=== PATIENT | male | born 1970 | race Caucasian/White ===

== ENCOUNTER 2022-01-14 20:33 | Inpatient (IN) | payer OTHER, BC ==
[~2022-01-14 20:33] MED LIST: Iopamidol-370 76% 500 ML 1 ML ONE
[2022-01-14] MEDS ORDERED: Succinylcholine 200 MG/10 ml SYRINGE FS ONE (20:40)
[2022-01-14] MEDS ORDERED: Propofol 1,000 MG/100 ML VIAL IV ONE ×2 (20:43→21:06)
[2022-01-14] MEDS ORDERED: Fentanyl CADD 100 ML IV SCH (21:00)
[2022-01-14 21:08] LABS: Actual Bicarbonate (HCO3a) 18.5 mEq/L (22-28); Analyzer IN Cardio ER; Base Excess (BEa) -9.7 mEq/L (-2.0 to +3.0); CO2 Tension 49.4 mmHg (35.0-45.0); Calcium, Ionized (arterial) 0.96 mmol/L (1.12-1.30); Carboxyhemoglobin (COHb) 0.1 gm% (0.0-3.0); Hemoglobin (Hb) 13.1 g/dL (14.0-18.0); O2 Tension (PaO2), arterial 63.7 mmHg (80.0-100.0); Potassium - ABG Lab 5.62 mmol/L (3.70-5.30)
[2022-01-14 21:13] LABS: #Lymphocytes 0.7 thou/uL (1.20-3.40); #Monocytes 0.7 thou/uL (0.11-0.59); #Neutrophils 7.6 thou/uL (1.40-6.50); %Basophils 0.2 % (0.0-1.0); %Eosinophils 0.4 % (0.0-10.0); %Lymphocytes 7.7 % (21.0-51.0); %Neutrophils 83.7 % (42.0-75.0); Hemoglobin 13.3 g/dL (14.0-18.0); Mean Corpuscular HGB CONC 31.8 g/dL (32.0-36.0); Mean Corpuscular Hemoglobin 30.3 pg (27.0-31.0); Mean Corpuscular Volume 95.3 fl (78.0-98.0); Mean Platelet Volume 8.5 fL (7.4-10.4); Platelet Count 196 10x3/uL (130-400); RBC Distribution Width 13.8 % (11.5-14.5)
[2022-01-14 21:20] LABS: Puncture Site RBA; pH, Arterial 7.19 (7.35-7.45)
[2022-01-14 21:31] LABS: Acetaminophen Less than 10.0 mcg/mL (10.0-30.0); Alcohol Less than 10 mg/dL (Less than 10); CK (CPK) 2691 U/L (30-200); Salicylate Less than 8.0 mg/dL (15.0-30.0)
[2022-01-14 21:36] LABS: INR-International Normal Ratio 1.4; PTT 25.2 sec (22.9-36.1); Prothrombin Time 17.6 sec (12.0-14.7)
[2022-01-14 22:36] LABS: ALT (SGPT) 1141 U/L (8-55); AST (SGOT) 1266 U/L (5-34); Albumin 3.9 g/dL (3.5-5.0); Alkaline Phosphatase 69 U/L (40-110); Anion Gap 24 mmol/L (10-20); BUN (Urea Nitrogen) 56 mg/dL (8.4-25.7); Bilirubin, Total 0.9 mg/dL (0.2-1.2); Calc. Creatinine Clearance 0 mL/min (70-130); Calcium 7.5 mg/dL (7.8-10.44); Carbon Dioxide 14 mmol/L (22-29); Chloride 110 mmol/L (98-107); Estimated GFR 13; Globulin 3.7 g/dL (2.4-3.5); Glucose 141 mg/dL (70-105); Lipase 25 U/L (8-78); Protein, Total 7.6 g/dL (6.0-8.3); Sodium 141 mmol/L (136-145)
[2022-01-14 22:40] LABS: Bacteria/HPF None Seen HPF (None Seen); Bilirubin 1+ (Negative); Blood, Urine Trace (Negative); Clarity Turbid (Clear); Glucose, Urine (Dipstick) Normal (Negative); Ketone, Urine Negative (Negative); Leukocyte Negative Leu/uL (Negative); Nitrite Negative (Negative); Protein, Urine (Dipstick) 50 mg/dL (Neg-Trace); RBC/HPF 0-3 HPF (0-3); Specific Gravity, Urine 1.027 (1.002-1.036); Squamous Epithelial 0-3 HPF (0-3); WBC/HPF None Seen HPF (0-3)
[2022-01-14 22:49] LABS: Amphetamine Not Detected (NotDetected); Barbiturates Screen Not Detected (NotDetected); Benzodiazepine Screen Detected (NotDetected); Cocaine Metabolite Screen Not Detected (NotDetected); Methadone Not Detected (NotDetected); Methamphetamine Not Detected (NotDetected); Opiate Screen Detected (NotDetected); Oxycodone Screen Not Detected (NotDetected); Phencyclidine (PCP) Not Detected (NotDetected); THC/Cannabinoid Screen Not Detected (NotDetected); Tricyclic Screen Not Detected (NotDetected)
[2022-01-14 23:05] LABS: Potassium 6.8 mmol/L (3.5-5.1)
[2022-01-14] MEDS ORDERED: Insulin Regular 300 UNITS/3 ML VIAL ONE (23:15)
[2022-01-14] MEDS ORDERED: Calcium Chloride 1 GM/10 ML Abboject SYRINGE ONE (23:15)
[2022-01-14] MEDS ORDERED: Sodium Bicarb 50 MEQ/50 ML VIAL ONE (23:15)
[2022-01-14] MEDS ORDERED: Dextrose 50% Abboject 50 ML SYRINGE ONE (23:17)
[2022-01-14 23:23] LABS: CKMB 34.9 ng/mL (0-6.6)
[2022-01-14] MEDS ORDERED: Calcium Gluconate 9.2 MEQ in Sodium Chloride 0.9% 200 ML IVPB SCH (23:25)
[2022-01-14] MEDS ORDERED: Ondansetron ODT 4 MG TAB PO PRN (23:44)
[2022-01-14] MEDS ORDERED: Ondansetron PF 4 MG/2 ML Vial IVP PRN (23:44)
[2022-01-14] MEDS ORDERED: Norepinephrine 8 MG/0.9% NS 250 ML IVPB PRN (23:44)
[2022-01-14] MEDS ORDERED: Sodium Bicarbonate 150 MEQ in Dextrose 5% in Water 1,000 ML IV SCH (23:45)
[2022-01-14] MEDS ORDERED: Ventilator Sedation Protocol 1 EACH FS SCH (23:45)
[2022-01-14 23:57] LABS: Creatinine, Urine 226.84 mg/dL (63-166)
[2022-01-15] MEDS ORDERED: NOREPINEPHRINE 8 MG/250 ML-D5W 0 ML ONE (00:17)
[2022-01-15 00:29] LABS: Lactic Acid 2.3 mmol/L (0.5-2.2)
[2022-01-15] MEDS ORDERED: Midazolam HCl 2 mg/2 ml Vial SLOW IVP PRN (00:39)
[2022-01-15] MEDS ORDERED: Propofol BOLUS 1,000 MG/100 ML VIAL IV PRN (00:45)
[2022-01-15] MEDS ORDERED: DISCONTINUE PREVIOUS NARCOTIC PAIN MEDICATIONS AND BENZODIAZEPINES FS SCH (00:45)
[2022-01-15] MEDS ORDERED: Fentanyl BOLUS 250 ML IVPB PRN (00:45)
[2022-01-15] MEDS ORDERED: Propofol 1,000 MG/100 ML VIAL IV PRN (00:45)
[2022-01-15] MEDS ORDERED: Fentanyl CADD 100 ML IV SCH (00:45)
[2022-01-15] MEDS ORDERED: Morphine 4 MG/ML VIAL SLOW IVP PRN (00:45)
[2022-01-15] MEDS ORDERED: Piperacillin/Tazobactam 3.375 GM in Sodium Chloride 0.9% 100 ML IVPB SCH ×3 (01:00→14:00)
[2022-01-15 01:12] LABS: Troponin I 1.896 ng/mL (< 0.028)
[2022-01-15 02:50] LABS: SARS-CoV-2 NAA Rapid Test Not Detected (NotDetected)
[2022-01-15] MEDS: Sodium Bicarbonate 75 MEQ in Sodium Chloride 0.45% 1,000 ML IV SCH ×4 (03:00→21:20)
[2022-01-15 04:55] LABS: Anion Gap 18 mmol/L (10-20); BUN (Urea Nitrogen) 56 mg/dL (8.4-25.7); Calc. Creatinine Clearance 43 mL/min (70-130); Calcium 7.4 mg/dL (7.8-10.44); Carbon Dioxide 18 mmol/L (22-29); Chloride 112 mmol/L (98-107); Estimated GFR 15; Glucose 122 mg/dL (70-105); Potassium 4.9 mmol/L (3.5-5.1); Sodium 143 mmol/L (136-145)
[2022-01-15 04:57] LABS: ALT (SGPT) 1236 U/L (8-55); AST (SGOT) 1429 U/L (5-34); Albumin 3.1 g/dL (3.5-5.0); Alkaline Phosphatase 56 U/L (40-110); Bilirubin, Direct 0.4 mg/dL (0.1-0.3); Bilirubin, Total 0.8 mg/dL (0.2-1.2); Protein, Total 5.8 g/dL (6.0-8.3)
[2022-01-15 05:01] LABS: Critical Call Chem Troponin I RESULT DECREASING; Troponin I 1.708 ng/mL (< 0.028)
[2022-01-15 07:38] LABS: Actual Bicarbonate (HCO3a) 20.6 mEq/L (22-28); Base Excess (BEa) -4.6 mEq/L (-2.0 to +3.0); CO2 Tension 38.4 mmHg (35.0-45.0); Calcium, Ionized (arterial) 1.02 mmol/L (1.12-1.30); Carboxyhemoglobin (COHb) 0.3 gm% (0.0-3.0); Hemoglobin (Hb) 11.9 g/dL (14.0-18.0); O2 Tension (PaO2), arterial 73.3 mmHg (80.0-100.0); Potassium - ABG Lab 4.01 mmol/L (3.70-5.30); pH, Arterial 7.35 (7.35-7.45)
[2022-01-15 07:39] LABS: Puncture Site RRA
[2022-01-15] MEDS: Enoxaparin Sodium 30 MG/0.3 ML SYRINGE SC SCH (08:32)
[2022-01-15 08:33] LABS: #Eosinphils 0.1 thou/uL (0.0-0.7); #Monocytes 0.6 thou/uL (0.11-0.59); #Neutrophils 5.9 thou/uL (1.40-6.50); %Basophils 0.5 % (0.0-1.0); %Eosinophils 1.3 % (0.0-10.0); %Lymphocytes 13.3 % (21.0-51.0); %Monocytes 8.2 % (0.0-10.0); %Neutrophils 76.7 % (42.0-75.0); Hemoglobin 12.2 g/dL (14.0-18.0); Mean Corpuscular Hemoglobin 29.4 pg (27.0-31.0); Mean Corpuscular Volume 94.9 fl (78.0-98.0); Mean Platelet Volume 8.7 fL (7.4-10.4); Platelet Count 154 10x3/uL (130-400); RBC Distribution Width 13.9 % (11.5-14.5); Red Blood Cell (RBC) Count 4.15 mill/uL (4.70-6.10); White Blood Cell (WBC) Count 7.7 10x3/uL (4.8-10.8)
[2022-01-15] MEDS ORDERED: Senokot 8.6 MG TAB PO SCH (10:00)
[2022-01-15] MEDS ORDERED: Polyethylene Glycol 3350 17 GM Packet PO SCH (10:00)
[2022-01-15] MEDS ORDERED: FLU VACC QS2022-23(6MOS UP)/PF 60 MCG/0.5 ML SYRINGE IM ONE (10:30)
[2022-01-15] MEDS ORDERED: Promethazine HCl 25 MG/ML VIAL IM PRN (10:55)
[2022-01-15] MEDS ORDERED: diphenhydrAMINE 50 MG/ML VIAL IM PRN (10:55)
[2022-01-15] MEDS ORDERED: Ondansetron PF 4 MG/2 ML Vial IVP PRN (10:55)
[2022-01-15] MEDS ORDERED: diphenhydrAMINE 25 MG CAP PO PRN (10:55)
[2022-01-15] MEDS ORDERED: FENTANYL 500 MCG/10 ML VIAL 2,000 MCG in Sodium Chloride 0.9% 60 ML IV PRN (10:55)
[2022-01-15] MEDS ORDERED: diphenhydrAMINE 50 MG/ML VIAL IVP PRN (10:55)
[2022-01-15] MEDS ORDERED: Naloxone HCl 0.4 mg/ml Vial IV PRN (10:55)
[2022-01-15] MEDS ORDERED: Zolpidem Tartrate 5 MG TAB PO PRN (10:55)
[2022-01-15] MEDS ORDERED: Communication Order-Pharmacy FS SCH (11:00)
[2022-01-15] MEDS ORDERED: Fentanyl CADD 100 ML IVPB SCH (11:30)
[2022-01-15] MEDS ORDERED: Fentanyl CADD 0 ML ONE (13:10)
[2022-01-15] MEDS: Piperacillin/Tazobactam 3.375 GM in Sodium Chloride 0.9% 100 ML IVPB SCH ×2 (15:23→21:20)
[2022-01-15] MEDS ORDERED: Dextrose 50% Abboject 50 ML SYRINGE SLOW IVP PRN (17:32)
[2022-01-15] MEDS ORDERED: HumaLOG 300 UNITS/3 ML VIAL SC PRN (17:32)
[2022-01-15] MEDS ORDERED: Dextrose 5% in Water 1,000 ML IV PRN (17:32)
[2022-01-15] MEDS: Senokot 8.6 MG TAB PO SCH (20:06)
[2022-01-15] MEDS: Polyethylene Glycol 3350 17 GM Packet PO SCH (20:07)
[2022-01-15] MEDS ORDERED: Gabapentin 100 MG CAP PO SCH (23:30)
[2022-01-16] MEDS: Sodium Bicarbonate 75 MEQ in Sodium Chloride 0.45% 1,000 ML IV SCH ×3 (03:08→12:58)
[2022-01-16] MEDS: Piperacillin/Tazobactam 3.375 GM in Sodium Chloride 0.9% 100 ML IVPB SCH ×3 (06:16→23:32)
[2022-01-16 07:44] LABS: #Eosinphils 0.1 thou/uL (0.0-0.7); #Lymphocytes 0.8 thou/uL (1.20-3.40); #Monocytes 0.5 thou/uL (0.11-0.59); #Neutrophils 6.2 thou/uL (1.40-6.50); %Basophils 0.6 % (0.0-1.0); %Eosinophils 1.7 % (0.0-10.0); %Lymphocytes 9.9 % (21.0-51.0); %Monocytes 6.6 % (0.0-10.0); %Neutrophils 81.3 % (42.0-75.0); Hemoglobin 12.2 g/dL (14.0-18.0); Mean Corpuscular HGB CONC 33.9 g/dL (32.0-36.0); Mean Corpuscular Hemoglobin 31.7 pg (27.0-31.0); Mean Corpuscular Volume 93.6 fl (78.0-98.0); Mean Platelet Volume 8.4 fL (7.4-10.4); Platelet Count 120 10x3/uL (130-400); RBC Distribution Width 13.4 % (11.5-14.5); Red Blood Cell (RBC) Count 3.84 mill/uL (4.70-6.10); White Blood Cell (WBC) Count 7.7 10x3/uL (4.8-10.8)
[2022-01-16 08:16] LABS: ALT (SGPT) 1436 U/L (8-55); AST (SGOT) 888 U/L (5-34); Albumin 3.1 g/dL (3.5-5.0); Alkaline Phosphatase 63 U/L (40-110); Anion Gap 15 mmol/L (10-20); BUN (Urea Nitrogen) 35 mg/dL (8.4-25.7); Bilirubin, Total 1.2 mg/dL (0.2-1.2); CK (CPK) 1826 U/L (30-200); Calc. Creatinine Clearance 127 mL/min (70-130); Calcium 7.4 mg/dL (7.8-10.44); Carbon Dioxide 27 mmol/L (22-29); Chloride 108 mmol/L (98-107); Estimated GFR 53; Globulin 2.9 g/dL (2.4-3.5); Glucose 136 mg/dL (70-105); Potassium 3.4 mmol/L (3.5-5.1); Sodium 147 mmol/L (136-145)
[2022-01-16] MEDS: Enoxaparin Sodium 30 MG/0.3 ML SYRINGE SC SCH (08:57)
[2022-01-16] MEDS: Gabapentin 100 MG CAP PO SCH ×3 (08:57→20:05)
[2022-01-16] MEDS ORDERED: Polyethylene Glycol 3350 17 GM Packet PER TUBE SCH (09:00)
[2022-01-16] MEDS: Senokot 8.6 MG TAB PO SCH ×2 (09:19→20:05)
[2022-01-16] MEDS ORDERED: FENTANYL 50 MCG/ML 1 ML VIAL SLOW IVP PRN (11:12)
[2022-01-16] MEDS: fentaNYL 50 mcg/hour Patch TD SCH (11:28)
[2022-01-16] MEDS ORDERED: Potassium Chloride 20 MEQ TAB PO SCH (13:45)
[2022-01-16] MEDS: Polyethylene Glycol 3350 17 GM Packet PO SCH (20:05)
[2022-01-17 05:40] LABS: #Eosinphils 0.2 thou/uL (0.0-0.7); #Lymphocytes 1.1 thou/uL (1.20-3.40); #Monocytes 0.6 thou/uL (0.11-0.59); #Neutrophils 5.9 thou/uL (1.40-6.50); %Basophils 0.4 % (0.0-1.0); %Eosinophils 2.3 % (0.0-10.0); %Lymphocytes 13.9 % (21.0-51.0); %Monocytes 7.1 % (0.0-10.0); %Neutrophils 76.4 % (42.0-75.0); Hemoglobin 10.9 g/dL (14.0-18.0); Mean Corpuscular HGB CONC 31.9 g/dL (32.0-36.0); Mean Corpuscular Hemoglobin 29.6 pg (27.0-31.0); Mean Platelet Volume 8.7 fL (7.4-10.4); Platelet Count 116 10x3/uL (130-400); RBC Distribution Width 13.7 % (11.5-14.5); Red Blood Cell (RBC) Count 3.67 mill/uL (4.70-6.10); White Blood Cell (WBC) Count 7.8 10x3/uL (4.8-10.8)
[2022-01-17] MEDS: Piperacillin/Tazobactam 3.375 GM in Sodium Chloride 0.9% 100 ML IVPB SCH (05:53)
[2022-01-17 06:12] LABS: ALT (SGPT) 877 U/L (8-55); AST (SGOT) 218 U/L (5-34); Alkaline Phosphatase 52 U/L (40-110); Anion Gap 14 mmol/L (10-20); BUN (Urea Nitrogen) 19 mg/dL (8.4-25.7); Bilirubin, Total 1.3 mg/dL (0.2-1.2); CK (CPK) 1147 U/L (30-200); Calc. Creatinine Clearance 173 mL/min (70-130); Calcium 7.5 mg/dL (7.8-10.44); Carbon Dioxide 27 mmol/L (22-29); Chloride 108 mmol/L (98-107); Estimated GFR 78; Globulin 2.9 g/dL (2.4-3.5); Glucose 142 mg/dL (70-105); Potassium 3.7 mmol/L (3.5-5.1); Protein, Total 5.9 g/dL (6.0-8.3); Sodium 145 mmol/L (136-145)
[2022-01-17] MEDS ORDERED: Ergocalciferol 1.25 MG(50,000 UNITS) CAP PO SCH (09:00)
[2022-01-17] MEDS: Gabapentin 100 MG CAP PO SCH ×3 (09:36→21:22)
[2022-01-17] MEDS: Enoxaparin Sodium 40 MG/0.4 ML SYRINGE SC SCH (09:36)
[2022-01-17] MEDS: Senokot 8.6 MG TAB PO SCH ×2 (09:36→21:23)
[2022-01-17] MEDS ORDERED: Furosemide 100 MG/10 ML VIAL SLOW IVP SCH (13:45)
[2022-01-17] MEDS: Amoxicillin/Potassium Clav 875 MG TAB PO SCH (21:22)
[2022-01-17] MEDS: hydrALAZINE 25 MG TAB PO SCH (21:22)
[2022-01-17] MEDS: Polyethylene Glycol 3350 17 GM Packet PO SCH (21:23)
[2022-01-18 08:36] LABS: ALT (SGPT) 507 U/L (8-55); AST (SGOT) 72 U/L (5-34); Albumin 2.9 g/dL (3.5-5.0); Alkaline Phosphatase 54 U/L (40-110); Anion Gap 16 mmol/L (10-20); BUN (Urea Nitrogen) 15 mg/dL (8.4-25.7); Bilirubin, Total 1.5 mg/dL (0.2-1.2); CK (CPK) 400 U/L (30-200); Calc. Creatinine Clearance 207 mL/min (70-130); Calcium 7.7 mg/dL (7.8-10.44); Carbon Dioxide 25 mmol/L (22-29); Chloride 103 mmol/L (98-107); Estimated GFR 98; Glucose 99 mg/dL (70-105); Potassium 3.5 mmol/L (3.5-5.1); Protein, Total 5.9 g/dL (6.0-8.3); Sodium 140 mmol/L (136-145)
[2022-01-18] MEDS ORDERED: Potassium Chloride 20 MEQ TAB PO SCH (09:00)
[2022-01-18] MEDS: Enoxaparin Sodium 40 MG/0.4 ML SYRINGE SC SCH (10:43)
[2022-01-18] MEDS: Amoxicillin/Potassium Clav 875 MG TAB PO SCH ×2 (10:43→21:16)
[2022-01-18] MEDS: Gabapentin 100 MG CAP PO SCH ×3 (10:43→21:16)
[2022-01-18] MEDS: hydrALAZINE 25 MG TAB PO SCH ×2 (10:43→21:16)
[2022-01-18] MEDS: Senokot 8.6 MG TAB PO SCH ×2 (10:44→21:15)
[2022-01-18] MEDS ORDERED: Valsartan 80 MG TAB PO SCH ×2 (14:00→22:15)
[2022-01-18] MEDS ORDERED: Furosemide 20 MG TAB PO SCH (14:00)
[2022-01-18] MEDS ORDERED: Spironolactone 25 MG TAB PO SCH (14:00)
[2022-01-18] MEDS: Polyethylene Glycol 3350 17 GM Packet PO SCH (21:16)
[2022-01-19] MEDS ORDERED: Valsartan 80 MG TAB PO SCH (09:00)
[2022-01-19 09:54] LABS: Anion Gap 14 mmol/L (10-20); BUN (Urea Nitrogen) 12 mg/dL (8.4-25.7); Calc. Creatinine Clearance 212 mL/min (70-130); Calcium 8.3 mg/dL (7.8-10.44); Carbon Dioxide 24 mmol/L (22-29); Chloride 103 mmol/L (98-107); Estimated GFR 102; Glucose 117 mg/dL (70-105); Potassium 3.8 mmol/L (3.5-5.1); Sodium 137 mmol/L (136-145)
[2022-01-19] MEDS: Spironolactone 25 MG TAB PO SCH (10:37)
[2022-01-19] MEDS: Amoxicillin/Potassium Clav 875 MG TAB PO SCH ×2 (10:37→21:08)
[2022-01-19] MEDS: Furosemide 40 MG TAB PO SCH (10:37)
[2022-01-19] MEDS: Senokot 8.6 MG TAB PO SCH ×2 (10:38→21:08)
[2022-01-19] MEDS: Valsartan 80 MG TAB PO SCH (10:38)
[2022-01-19] MEDS: hydrALAZINE 25 MG TAB PO SCH ×2 (10:38→21:09)
[2022-01-19] MEDS: Enoxaparin Sodium 40 MG/0.4 ML SYRINGE SC SCH (10:39)
[2022-01-19] MEDS: Nebivolol HCl 5 MG TAB PO SCH (10:39)
[2022-01-19] MEDS: Gabapentin 100 MG CAP PO SCH ×3 (10:39→21:08)
[2022-01-19 12:17] VITALS: BMI 44.6
[2022-01-19] MEDS: fentaNYL 50 mcg/hour Patch TD SCH (12:27)
[2022-01-19 14:31] LABS: ALT (SGPT) 341 U/L (8-55); AST (SGOT) 60 U/L (5-34); Albumin 3.2 g/dL (3.5-5.0); Alkaline Phosphatase 63 U/L (40-110); Bilirubin, Direct 0.6 mg/dL (0.1-0.3); Bilirubin, Total 1.3 mg/dL (0.2-1.2); CK (CPK) 183 U/L (30-200); Protein, Total 6.3 g/dL (6.0-8.3)
[2022-01-19] MEDS: Polyethylene Glycol 3350 17 GM Packet PO SCH (21:09)
[2022-01-20 06:39] LABS: ALT (SGPT) 260 U/L (8-55); AST (SGOT) 51 U/L (5-34); Albumin 3.4 g/dL (3.5-5.0); Alkaline Phosphatase 62 U/L (40-110); Anion Gap 15 mmol/L (10-20); BUN (Urea Nitrogen) 12 mg/dL (8.4-25.7); Bilirubin, Total 1.1 mg/dL (0.2-1.2); CK (CPK) 178 U/L (30-200); Calc. Creatinine Clearance 191 mL/min (70-130); Calcium 8.7 mg/dL (7.8-10.44); Carbon Dioxide 22 mmol/L (22-29); Chloride 103 mmol/L (98-107); Estimated GFR 93; Globulin 3.5 g/dL (2.4-3.5); Glucose 103 mg/dL (70-105); Potassium 4.1 mmol/L (3.5-5.1); Protein, Total 6.9 g/dL (6.0-8.3); Sodium 136 mmol/L (136-145)
[2022-01-20] MEDS: Valsartan 80 MG TAB PO SCH (08:50)
[2022-01-20] MEDS: Amoxicillin/Potassium Clav 875 MG TAB PO SCH (08:51)
[2022-01-20] MEDS: Furosemide 40 MG TAB PO SCH (08:51)
[2022-01-20] MEDS: Gabapentin 100 MG CAP PO SCH (08:51)
[2022-01-20] MEDS: hydrALAZINE 25 MG TAB PO SCH (08:51)
[2022-01-20] MEDS: Spironolactone 25 MG TAB PO SCH (08:52)
[2022-01-20] MEDS: Enoxaparin Sodium 40 MG/0.4 ML SYRINGE SC SCH (08:52)
[2022-01-20] MEDS: Nebivolol HCl 5 MG TAB PO SCH (08:52)
[2022-01-20] MEDS: Senokot 8.6 MG TAB PO SCH (08:53)
[2022-01-20 12:54] VITALS: BP 159/81; TEMP 97.9
== END 2022-01-20 13:10 | disposition home or self-care (01) | DRG 208 ==
LOC: ERS 20:33 → CCU 23:21 → SURG B 01-16 15:36
PROVIDERS: ADMIT Internal Medicine; ATTEND Internal Medicine
PROC: 5A1935Z Respiratory Ventilation, Less than 24 Consecutive Hours (ICD-10-PCS; principal; 2022-01-14)
DX: J69.0 Pneumonitis due to inhalation of food and vomit (principal); Z20.822 Contact with and (suspected) exposure to COVID-19; J96.01 Acute respiratory failure with hypoxia; S22.2 Fracture of sternum; S22.32XA Fracture of one rib, left side, initial encounter for closed fracture; Z68.41 Body mass index [BMI] 40.0-44.9, adult; I24.8 Other forms of acute ischemic heart disease; N17.9 Acute kidney failure, unspecified; E87.20 Acidosis, unspecified; E87.0 Hyperosmolality and hypernatremia; J98.11 Atelectasis; R94.5 Abnormal results of liver function studies; E87.5 Hyperkalemia; T79.6XXA Traumatic ischemia of muscle, initial encounter; F11.10 Opioid abuse, uncomplicated; T40.2X1A Poisoning by other opioids, accidental (unintentional), initial encounter; E86.9 Volume depletion, unspecified; E66.01 Morbid (severe) obesity due to excess calories; G89.4 Chronic pain syndrome; E55.9 Vitamin D deficiency, unspecified; E87.6 Hypokalemia; V69.9XXA Occupant (driver) (passenger) of heavy transport vehicle injured in unspecified traffic accident, initial encounter; Z78.1 Physical restraint status; Z28.21 Immunization not carried out because of patient refusal; Z88.6 Allergy status to analgesic agent; Z88.8 Allergy status to other drugs, medicaments and biological substances; Z98.84 Bariatric surgery status; Z98.890 Other specified postprocedural states; Z83.3 Family history of diabetes mellitus
CPT/HCPCS: 31500; 36415; 36416; 36600; 70450; 71045; 71260; 72125; 74177; 76770; 80048; 80053; 80076; 80306; 80307; 81003; 81015; 82306; 82550; 82553; 82570; 82805; 83605; 83690; 83880; 84156; 84300; 84484; 85025; 85610; 85730; 86850; 86900; 86901; 93005; 93306; 94002; 94003; 94760; 96374; 96375; J0610; J1650; J1815; J1940; J2543; J2704; J3010; J3490; J7070; J7999; Q9967